=== PATIENT | female | born 1985 | race Caucasian/White ===

== ENCOUNTER 2020-03-31 17:06 | Outpatient (REF) | payer OTHER, SELFPAY | END 2020-03-31 17:07 | disposition home or self-care (01) | LOC: HO.LAB 17:06 | PROVIDERS: Visit Provider Internal Medicine | DX: Z20.828 Contact with and (suspected) exposure to other viral communicable diseases (principal) | CPT/HCPCS: 87635 ==

== ENCOUNTER 2020-07-07 17:18 | Outpatient (REF) | payer OTHER, SELFPAY | END 2020-07-07 17:19 | disposition home or self-care (01) | LOC: HO.LAB 17:18 | PROVIDERS: Visit Provider Internal Medicine | DX: Z20.822 Contact with and (suspected) exposure to COVID-19 (principal) | CPT/HCPCS: 36415; C9803; U0003 ==